=== PATIENT | male | born 1970 | race Caucasian/White ===

== ENCOUNTER → 2022-01-31 | Outpatient (CLI) | payer BC ==
[2022-01-31 17:29] LABS: ALBUMIN 4.3 g/dL (3.5-5.0); POTASSIUM 4.6 mmol/L (3.5-5.1)
[2022-01-31 17:30] LABS: CALCIUM 9.9 mg/dL (8.3-10.5)
[2022-01-31 17:33] LABS: TOTAL BILIRUBIN 0.6 mg/dL (0.2-1.2)
[2022-01-31 17:34] LABS: URINE APPEARANCE HAZY; URINE BILIRUBIN 2+ (NEGATIVE); URINE BLOOD 50 ery/uL (NEGATIVE); URINE COLOR YELLOW; URINE GLUCOSE NEGATIVE (NEGATIVE); URINE KETONE NEGATIVE (NEGATIVE); URINE NITRATE NEGATIVE (NEGATIVE); URINE PROTEIN(semi-quant) TRACE (NEGATIVE); URINE UROBILINOGEN NORMAL (NORMAL)
[2022-01-31 17:35] LABS: URINE LEUKOCYTE ESTERASE NEGATIVE (NEGATIVE); URINE MUCUS PRESENT (NOT PRESENT); URINE WBC 0-1 /hpf (0-3)
== END ==
LOC: LAB 16:59
PROVIDERS: Family Medicine
DX: Z13.1 Encounter for screening for diabetes mellitus (principal); Z12.5 Encounter for screening for malignant neoplasm of prostate; M10.9 Gout, unspecified; I10 Essential (primary) hypertension

== ENCOUNTER → 2022-04-11 | Outpatient (CLI) | payer BC | LOC: LAB 13:20 | DX: Z87.39 Personal history of other diseases of the musculoskeletal system and connective tissue (principal) ==